=== PATIENT | male | born 1965 | race Caucasian/White ===

== ENCOUNTER 2018-01-03 12:33 | Day surgery (SDC) | payer OTHER ==
[~2018-01-03 12:33] MED LIST: CIPROFLOXACIN 400MG PREMIX 200 ML IV; LIDOCAINE 1% PF 2 ML VIAL. ID; MORPHINE SULFATE 2 MG/ML DISP.SYRIN. IV; ONDANSETRON PF 4 MG/2 ML VIAL. IV; PROCHLORPERAZINE 10 MG/2 ML VIAL. IV; fentaNYL PF VIAL 100 MCG/2 ML VIAL IV
[2018-01-03] MEDS ORDERED: IOHEXOL 300 MG/ML 100ML VIAL. ×2 (13:20)
[2018-01-03] MEDS ORDERED: 0.9 % SODIUM CHLORIDE 50 ML VIAL. IJ ×2 (13:21)
[2018-01-03] MEDS ORDERED: FAMOTIDINE 20 MG/2 ML VIAL ×2 (13:41)
[2018-01-03] MEDS ORDERED: fentaNYL PF VIAL 100 MCG/2 ML VIAL ×4 (13:41→13:52)
[2018-01-03] MEDS: IV RINGERS,LACTATED 1000ML 1,000 ML IV ×2 (13:41)
[2018-01-03] MEDS ORDERED: PROPOFOL 0 ML IV ×2 (13:41)
[2018-01-03] MEDS ORDERED: MIDAZOLAM HCL/PF 2 MG/2 ML VIAL. ×2 (13:42)
[2018-01-03] MEDS ORDERED: LIDOCAINE 2% PF Vial for OR 5 ML VIAL. ×2 (13:52)
[2018-01-03] MEDS ORDERED: ROCURONIUM 50 MG/5 ML VIAL. ×4 (13:52→14:41)
[2018-01-03] MEDS ORDERED: KETOROLAC 30 MG/ML INJ FOR OR. INJ ×2 (13:53)
[2018-01-03] MEDS ORDERED: PROPOFOL 20 ML IV ×2 (13:53)
[2018-01-03] MEDS ORDERED: ONDANSETRON PF 4 MG/2 ML VIAL. ×2 (14:26)
[2018-01-03] MEDS ORDERED: NEOSTIGMINE METHYLSULFATE 5 MG/5 ML SYRINGE. ×2 (14:27)
[2018-01-03] MEDS ORDERED: DESFLURANE 31 TO 60 MINUTES IH ×2 (14:27)
[2018-01-03] MEDS ORDERED: GLYCOPYRROLATE 1 MG/5 ML VIAL. ×2 (14:27)
[2018-01-03] MEDS: LIDOCAINE 2% JELLY 6ML IN APPLICATOR. (14:30)
[2018-01-03] MEDS ORDERED: PHENYLEPHRINE in 0.9% NACL PF 1 MG/10 ML SYRINGE. IV (14:31)
[2018-01-03] MEDS ORDERED: ePHEDrine PF IN SALINE 50 MG/5 ML DISP.SYRIN IV (14:43)
[2018-01-03] MEDS: STERILE WATER IRR (15:00)
[2018-01-03] MEDS: MITOMYCIN IRR (15:00)
[2018-01-03] MEDS: HYDROcodone/APAP 10/325 1 TAB TABLET PO ×2 (16:56)
== END 2018-01-03 17:58 | disposition home or self-care (01) ==
LOC: SURG 12:33
DX: D49.4 Neoplasm of unspecified behavior of bladder (principal); Z86.69 Personal history of other diseases of the nervous system and sense organs; Z72.89 Other problems related to lifestyle; Z72.0 Tobacco use
CPT/HCPCS: 51720; 88305; J0744; J1885; J2250; J2370; J2405; J2704; J2710; J3010; J3490; J7120; J9280; Q9967; S0028